=== PATIENT | female | born 1985 | race Caucasian/White ===

== ENCOUNTER 2021-05-19 10:43 | Inpatient (IN) ==
[2021-05-19 10:18] LABS: Basophils % 0.2 %; Eosinophils % 0.2 %; Hematocrit 38.6 % (35.3-44.9); Hemoglobin 12.3 g/dL (11.5-15.4); Immature Granulocytes % 0.3 % (0-4); Lymphocytes % 15.4 %; Mean Corpuscular HGB Conc 31.9 g/dL (31.6-35.5); Mean Corpuscular Volume 87.7 fL (83.0-100.0); Mean Platelet Volume 11.7 fL (9.4-12.4); Monocytes # 0.5 K/mcL (0.0-1.3); Monocytes % 4.2 %; Neutrophils # 10.1 K/mcL (1.6-8.9); Platelet Count 232 K/mcL (140-400); Red Cell Distribution Width 14.4 % (11.5-14.5); Segmented Neutrophils % 79.7 %; White Blood Count 12.6 K/mcL (4.3-11.1)
[2021-05-19 10:28] LABS: Amphetamine Screen,Urine Negative ng/mL (Cutoff=1000); Barbiturate Screen,Urine Negative ng/mL (Cutoff=200); Benzodiazepines Screen,Urine Negative ng/mL (Cutoff=200); Cannabinoid Screen,Urine Negative ng/mL (Cutoff = 50); Cocaine Screen,Urine Negative ng/mL (Cutoff= 300); Opiate Screen,Urine Negative ng/mL (Cutoff=300); Phencyclidine Screen,Urine Negative ng/mL (Cutoff=25)
[~2021-05-19 10:43] MED LIST: *HR* FentaNYL (PF) 100 MCG/2 ML VIAL ONE; *HR* Midazolam HCl 2 MG/2 ML VIAL ONE; *HR* Morphine Sulfate/PF 10 MG/10 ML AMPUL ONE; Azithromycin 500 MG in 0.9 % Sodium Chloride 250 ML IVPB PRN; CeFAZolin Syr 3,000MG/30 ML 3,000 MG/30 ML SYRINGE IVPB ONE; EPHEDrine 50 MG/ML VIAL ONE; Famotidine 20 MG/2 ML VIAL IVP ONE; Famotidine 20 MG/2 ML VIAL IVP PRN; Lidocaine -MPF 1% 2 ML VIAL ONE; Metoclopramide 10 MG/2 ML VIAL IVP ONE; Metoclopramide 10 MG/2 ML VIAL IVP PRN; Naloxone 0.4 MG/ML INJ IVP PRN; Ondansetron 4 MG/2 ML VIAL ONE; Oxytocin 20 units/ LR 1000 mL 20 UNIT/1,000 ML BAG IVC ONE; Ringers Solution, Lactated 1,000 ML IVC SCH
[2021-05-19] MEDS ORDERED: *HR* Oxytocin 10 UNIT/ML VIAL IM ONE (10:44)
[2021-05-19] MEDS ORDERED: Ketorolac 30 MG/ML VIAL ONE (10:44)
[2021-05-19] MEDS ORDERED: Ringers Solution, Lactated 1,000 ML ONE (10:45)
[2021-05-19] MEDS ORDERED: Oxytocin 20 units/ LR 1000 mL 20 UNIT/1,000 ML BAG IVC ONE (10:48)
[2021-05-19] MEDS ORDERED: Scopolamine Patch 1.5 MG PATCH.TD72 TD ONE (11:13)
[2021-05-19] MEDS ORDERED: *HR* Magnesium Sulfate 1 GM/2 ML VIAL ONE (12:33)
[2021-05-19] MEDS ORDERED: *HR* HYDROmorphone PF 0.5 MG/0.5 ML SYRINGE IVP PRN (12:58)
[2021-05-19] MEDS ORDERED: *HR* Meperidine 25 MG/ML SYRINGE IVP PRN (12:58)
[2021-05-19] MEDS ORDERED: Promethazine 6.25 MG in Water for inj. (sterile) 20 ML IVPB PRN (12:58)
[2021-05-19] MEDS ORDERED: *HR* Labetalol 20 MG/4 ML SYRINGE IVP PRN (12:58)
[2021-05-19] MEDS ORDERED: Metoclopramide 10 MG/2 ML VIAL IVP PRN (16:03)
[2021-05-19] MEDS ORDERED: Naloxone 0.4 MG/ML INJ IVP PRN (16:03)
[2021-05-19] MEDS ORDERED: Oxytocin 20 units/ LR 1000 mL 20 UNIT/1,000 ML BAG IVC SCH ×2 (16:03)
[2021-05-19] MEDS ORDERED: Simethicone 80 MG TAB.CHEW PO PRN (16:03)
[2021-05-19] MEDS ORDERED: Ondansetron 4 MG/2 ML VIAL IVP PRN (16:03)
[2021-05-19] MEDS ORDERED: *HR* Nalbuphine 10 MG/ML AMPUL IV PRN (18:21)
[2021-05-19] MEDS: Ibuprofen 600 MG TABLET PO SCH (21:36)
[2021-05-20] MEDS ORDERED: *HR* Enoxaparin 150 MG/ML SYRINGE SQ SCH (01:00)
[2021-05-20] MEDS ORDERED: *HR* Enoxaparin 40 MG/0.4 ML SYRINGE SQ SCH (01:00)
[2021-05-20] MEDS ORDERED: *HR* Enoxaparin 40 MG/0.4 ML SYRINGE SQ ONE ×2 (02:00→11:45)
[2021-05-20] MEDS: Ibuprofen 600 MG TABLET PO SCH ×4 (03:50→18:37)
[2021-05-20 05:11] LABS: Basophils % 0.2 %; Eosinophils % 0.1 %; Hematocrit 29.2 % (35.3-44.9); Immature Granulocytes % 0.5 % (0-4); Lymphocytes # 2.8 K/mcL (0.6-4.6); Lymphocytes % 21.8 %; Mean Corpuscular HGB Conc 33.2 g/dL (31.6-35.5); Mean Corpuscular Hemoglobin 28.8 pg (28.0-33.3); Mean Corpuscular Volume 86.6 fL (83.0-100.0); Monocytes % 7.9 %; Neutrophils # 8.9 K/mcL (1.6-8.9); Platelet Count 186 K/mcL (140-400); Red Blood Count 3.37 M/mcL (3.82-4.97); Red Cell Distribution Width 14.2 % (11.5-14.5); Segmented Neutrophils % 69.5 %; White Blood Count 12.8 K/mcL (4.3-11.1)
[2021-05-20 05:16] LABS: Hemoglobin 9.7 g/dL (11.5-15.4)
[2021-05-20] MEDS: Prenatal Vit/FA 1 EACH TABLET PO SCH (07:49)
[2021-05-21] MEDS: Ibuprofen 600 MG TABLET PO SCH ×2 (02:14→08:58)
[2021-05-21] MEDS: Prenatal Vit/FA 1 EACH TABLET PO SCH (07:39)
[2021-05-21 08:11] VITALS: BP 99/65
[2021-05-21] MEDS ORDERED: *HR* Enoxaparin 40 MG/0.4 ML SYRINGE SQ ONE (11:22)
== END 2021-05-21 12:47 | disposition home or self-care (01) | DRG 785 ==
LOC: 1NENULAB → 1NENUOBS 16:06
PROVIDERS: ADMIT Registered Nurse; ATTEND Registered Nurse